=== PATIENT | female | born 1980 | race Asian ===

== ENCOUNTER 2019-04-08 12:54 | Emergency (ER) | payer OTHER ==
[~2019-04-08] VITALS: Ht 165.1 cm; Wt 59.6 kg
[~2019-04-08 12:54] MED LIST: ACET500C5 PO
[2019-04-08 12:58] VITALS: BP 119/76; PULSE 94; RESP 18; Ht 165.1 cm; Wt 59.6 kg
[2019-04-08] MEDS ORDERED: ACETAMINOPHEN 500 MG TAB PO STA (14:41)
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
== END 2019-04-08 15:48 | disposition home or self-care (01) ==
LOC: FTE 12:54
DX: O99.89 Other specified diseases and conditions complicating pregnancy, childbirth and the puerperium (principal); M54.9 Dorsalgia, unspecified; M54.2 Cervicalgia; Z3A.10 10 weeks gestation of pregnancy
CPT/HCPCS: 76801; Z7502; Z7610

== ENCOUNTER 2019-05-09 15:46 | Emergency (ER) | payer OTHER ==
[~2019-05-09] VITALS: Ht 165.1 cm; Wt 59.3 kg
[~2019-05-09 15:46] MED LIST changes: +CEPH-443 PO; +DOXY1TAB3 PO
[2019-05-09 15:53] VITALS: Ht 165.1 cm; Wt 59.3 kg
[2019-05-09] MEDS ORDERED: METOCLOPRAMIDE 10 MG INJ IV STA (16:26)
[2019-05-09] MEDS ORDERED: FAMOTIDINE 20 MG INJ IV STA (16:26)
[2019-05-09] MEDS ORDERED: SOD CHLORIDE 0.9% 1,000 ML IV STA (16:26)
[2019-05-09 18:06] VITALS: BP 90/66; PULSE 70; RESP 18
== END 2019-05-09 18:07 | disposition home or self-care (01) ==
LOC: FTE 15:46
DX: O21.9 Vomiting of pregnancy, unspecified (principal); O23.42 Unspecified infection of urinary tract in pregnancy, second trimester; O26.892 Other specified pregnancy related conditions, second trimester; R19.7 Diarrhea, unspecified; Z3A.16 16 weeks gestation of pregnancy
CPT/HCPCS: 36415; 80053; 81001; 83690; 85025; 96374; 96375; J2765; J7030; Z7502; Z7610